=== PATIENT | male | born 1990 | race African-American/Black ===

== ENCOUNTER 2020-10-23 19:47 | Emergency (ER) | payer SELFPAY ==
[~2020-10-23] VITALS: Ht 180.3 cm; Wt 127.3 kg
[~2020-10-23 19:47] MED LIST: ZOFRAN ODT8 MG PO
[2020-10-23 19:53] VITALS: TEMP 97.6
[2020-10-23] MEDS ORDERED: BACTRIM DS 8001 TAB PO (21:02)
[2020-10-23 21:16] VITALS: BP 149/96; PULSE 73
== END 2020-10-23 21:16 | disposition home or self-care (01) ==
LOC: COL.ER 19:47
DX: S51.812A Laceration without foreign body of left forearm, initial encounter (principal); F17.200 Nicotine dependence, unspecified, uncomplicated; V03.10XA Pedestrian on foot injured in collision with car, pick-up truck or van in traffic accident, initial encounter; Y93.01 Activity, walking, marching and hiking; Y92.411 Interstate highway as the place of occurrence of the external cause

== ENCOUNTER → 2020-11-06 | Outpatient (CLI) | payer SELFPAY ==
[~2020-11-06] MED LIST changes: +BACTRIM DS 8001 TAB PO
[2020-11-06 11:04] VITALS: BP 132/88; PULSE 84; TEMP 98.2
== END ==
LOC: COL.ER 10:49
DX: Z48.00 Encounter for change or removal of nonsurgical wound dressing (principal)

== ENCOUNTER 2021-04-05 17:03 | Emergency (ER) | payer SELFPAY ==
[~2021-04-05] VITALS: Ht 177.8 cm; Wt 136.4 kg
[2021-04-05 17:13] VITALS: TEMP 97.6
[2021-04-05 17:32] LABS: BASO # 0.1 (0.0-0.2); BASO % 1.1 % (0.0-2.0); EOS # 0.3 (0.0-0.7); EOS % 5.5 % (0-4.0); GRAN # 2.7 (1.4-6.5); GRAN % 49.7 % (42.2-75.2); HEMATOCRIT 45.4 % (42.0-52.0); HEMOGLOBIN 14.5 g/dl (13.5-18.0); LYMPH # 1.9 (1.2-3.4); LYMPH % 35.5 % (20.0-51.0); MEAN CELL VOLUME 83 fl (80.0-100.0); MEAN CORPUSCULAR HEMOGLOBIN 27 pg (27.0-31.0); MEAN CORPUSCULAR HGB CONC 32 g/dl (33.0-37.0); MEAN PLATELET VOLUME 9.6 fl (7.4-10.4); MONO # 0.4 (0.1-0.6); MONO % 7.5 % (1.7-9.3); PLATELET COUNT 200 K/mm3 (130-400); RED BLOOD COUNT 5.45 M/mm3 (4.20-5.60)
[2021-04-05 17:41] LABS: ALBUMIN 4.2 gm/dL (3.5-5.0); CALCIUM 9.3 mg/dL (8.4-10.2); CREATININE, serum 1.03 (0.66-1.25); POTASSIUM 3.7 mmol/L (3.4-5.0); TOTAL PROTEIN 7.4 gm/dL (6.4-8.2)
[2021-04-05] MEDS ORDERED: ZOFRAN ODT4 MG PO (18:15)
[2021-04-05 18:40] VITALS: BP 131/80; PULSE 82
== END 2021-04-05 18:43 | disposition home or self-care (01) ==
LOC: COL.ER 17:03
PROVIDERS: Emergency Medicine
DX: R11.2 Nausea with vomiting, unspecified (principal); R10.9 Unspecified abdominal pain
CPT/HCPCS: J2405; J7120